=== PATIENT | female | born 1950 | race Two or more races ===

== ENCOUNTER 2023-05-22 09:43 | Emergency (ER) | payer OTHER ==
[~2023-05-22] VITALS: Ht 160 cm; Wt 63.5 kg
[~2023-05-22 09:43] MED LIST: ATORVASTATIN CA10 MG; CARAFATE SU1 G/10 ML; COZAAR50 MG; LEVOTHROID75 MCG; METFORMIN HCL500 MG; PRILOSEC40 MG
[2023-05-22 10:45] LABS: HEMATOCRIT 38.3 % (36.0-45.00); HEMOGLOBIN 12.3 g/dL (12.0-15.00); MEAN CORPUSCULAR HEMOGLOBIN 29.2 pg (27.00-32.0); PLATELET COUNT 363 K/uL (150-450); RED BLOOD COUNT 4.21 M/uL (4.00-6.00)
[2023-05-22 11:10] LABS: CALCIUM 9.4 mg/dL (8.5-10.1); CREATININE SERUM 1.14 mg/dL (0.55-1.02); GFR 46.85; POTASSIUM 4.11 mEq/L (3.5-5.1)
[2023-05-22 11:24] LABS: PH,URINE 5.5 (5.0-8.0); URINE APPEARANCE Clear; URINE BILIRRUBIN Negative (NEGATIVE); URINE BLOOD Negative; URINE COLOR Yellow; URINE GLUCOSE Negative (NEGATIVE); URINE LEUKOCYTE Negative; URINE NITRATE Negative; URINE PROTEIN Negative (NEGATIVE); URINE UROBILINOGEN 0.2 E.U./dl
[2023-05-22 11:35] LABS: URINE BACTERIA 28.9 uL (0.0-1933); URINE EPITHELIAL CELLS 4.9 uL (0.0-38.8); URINE WBC 3.7 uL (0.0-23.2)
[2023-05-22 11:48] LABS: URINE RBC 0.7 uL (0.0-20.8)
== END 2023-05-22 15:08 | disposition home or self-care (01) ==
LOC: ER 09:43
PROVIDERS: Emergency Medicine
DX: R10.9 Unspecified abdominal pain (principal); K57.30 Diverticulosis of large intestine without perforation or abscess without bleeding
CPT/HCPCS: 36415; 74177; 96365; 96366; 99284; J1885; J7030; Q9965

== ENCOUNTER 2023-05-26 15:03 | Outpatient (CLI) | payer OTHER | END 2023-05-26 15:07 | disposition home or self-care (01) | LOC: LAB 15:03 | PROVIDERS: ATTEND Internal Medicine Geriatric Medicine | DX: D68.9 Coagulation defect, unspecified (principal) ==

== ENCOUNTER 2023-10-28 09:30 | Emergency (ER) | payer OTHER ==
[~2023-10-28] VITALS: Ht 154.9 cm; Wt 63.5 kg
[2023-10-28] MEDS ORDERED: ACETAMINOPHEN 500 MG GEL..CAP PO ONE (12:15)
[2023-10-28] MEDS ORDERED: FAMOTIDINE/PF 20 MG/2 ML VIAL IV ONE (12:15)
[2023-10-28] MEDS ORDERED: ORPHENADRINE CITRATE 30 MG/ML AMPUL IM ONE (15:30)
== END 2023-10-28 15:46 | disposition home or self-care (01) ==
LOC: ER 09:31
DX: S00.83XA Contusion of other part of head, initial encounter (principal); W19.XXXA Unspecified fall, initial encounter; Y93.89 Activity, other specified; Y92.89 Other specified places as the place of occurrence of the external cause; Y99.8 Other external cause status; I10 Essential (primary) hypertension; E03.8 Other specified hypothyroidism
CPT/HCPCS: 70450; 72040; 72070; 72100; 96365; 96372; 99284; J2360; J3490